=== PATIENT | male | born 1955 | race Caucasian/White ===

== ENCOUNTER 2023-12-12 09:38 | Outpatient (CLI) | payer BC | END 2023-12-12 09:39 | disposition home or self-care (01) | LOC: CSHRAD 09:38 | PROVIDERS: ATTEND Family Medicine Sports Medicine | DX: M25.562 Pain in left knee (principal); M17.12 Unilateral primary osteoarthritis, left knee | CPT/HCPCS: 73565 ==

== ENCOUNTER 2023-12-14 07:09 | Outpatient (CLI) | payer BC | END 2023-12-14 07:10 | disposition home or self-care (01) | LOC: CSHCT 07:09 | PROVIDERS: ATTEND Family Medicine Sports Medicine | DX: J43.9 Emphysema, unspecified (principal); Z87.891 Personal history of nicotine dependence; I70.90 Unspecified atherosclerosis | CPT/HCPCS: 71271 ==